=== PATIENT | female | born 1975 | race Caucasian/White ===

== ENCOUNTER 2016-07-27 18:11 | Emergency (ER) | payer OTHER ==
[~2016-07-27] VITALS: Ht 170.2 cm; Wt 95.5 kg
[2016-07-27 18:15] VITALS: BP 183/98; PULSE 114; RESP 20; O2SAT 97
--- NOTE | 2016-07-27 18:32 | ED.REPORT ---
HPI-Overdose/Alcohol Toxicity Date of Service Jul 27, 2016 ED Provider: Eliceo Rubin MD 41 y/o female with a hx of HTN and thyroid disease presents to the ED with SOB, onset 2 hours ago.The pt states she smoked THC and then "got panicked and brought myself straight here". She has used THC before but smoked Dabs for the first time today. She can't recall the approximate time she smoked because she "felt very disoriented". Associated sx include dry mouth and panic attack. Denies fever and cough. The pt states she was feeling normal prior to smoking.She has never experienced similar sx before. Nursing Notes Stated Complaint: NOT FEELING WELL Chief Complaint: Respiratory Complaints Nursing Notes Reviewed: Yes ([employer], [employer] not reconciled) Allergies: Coded Allergies: No Known Allergies (Unverified , 07/27/16) General Time Seen by Provider: 18:33 Chief Complaint Other (SOB) Hx Obtained From: Patient Arrived By: Walk-in Onset Occurred: 1 - 4 hours ago Symptom Duration: Since onset Progression Since Onset: Gradually improving Severity: Current: No pain currently Severity: Maximum: No pain Recent Healthcare: No recent doctor visit Similar Sx Previous: No Past Medical History Past Medical History Childhood Asthma Reports: Hypertension Reports: Thyroid disease Past Surgical History none reported Smoking History Unknown if Ever Smoker Social History Drug Use: THC Ambulatory Status Independent Review of Systems Reports: feeling disoriented Reports: dry mouth Constitutional: Denies: Fever Respiratory: Reports: Shortness of breath, Denies: Non-productive cough Psychiatric: Reports: Anxiety Complete sys rev & neg: except as marked. Physical Exam Initial Vital Signs Vital Signs (First) Date Time Temp Pulse Resp B/P Pulse Ox O2 Delivery O2 Flow Rate FiO2 07/27/16 18:15 36.2 114 20 183/98 97 Initial VS: Reviewed, Vital signs abnormal Neck: Full range of motion Extremities: Vascular intact, Neuro intact, No swelling, No tenderness Skin: Warm, Dry, No cyanosis General/Constitutional: Awake, Alert, Cooperative Behavior: Positive: Anxious Respiratory / Chest: Atraumatic, Breath sounds NL, Breath sounds = bilat, No respiratory distress, No rales, No rhonchi, No wheezing No respiratory depression. No bronchospasm. Cardiovascular: Regular rhythm, Heart sounds NL, No murmurs, No rubs Heart Rate / Rhythm: Positive: Tachycardia (Mild) Mildly hypertensive (baseline) Abdomen: Atraumatic, Soft, Non-tender, No guarding, No rebound Neurologic: Oriented X3, Speech NL (No slurred speech), No motor deficits, No sensory deficits No focal deficit Psychiatric: Affect NL, Mood NL Upper Extremity / MS: Atraumatic, Full range of motion, Neurologic intact, Vascular intact Lower Extremity / Pelvis / MS: Atraumatic, Full range of motion, Neurologic intact, Vascular intact Interpretation & Diagnostics ECG Interpretation ECG Interpretation: Sinus tachycardia. Rate 106. No acute ischemic changes. Borderline left ventricular hypertrophy No prior ECG for comparison. Time: 18:34 Interpreted by: ED physician Re-Eval/Medical Decision Med Decision/Clinical Course This is a 41-year-old female reports she smoked a new type of marijuana (daps) and felt very strange. She became very scared, so came directly to the emergency department. She initially felt anxious, slightly short of breath, but reports she is now starting to feel better. She denies SI. She denies any HI, she denies any intentional overdose. She has no additional complaints. His hypertensive and anxious, states hypertension is long-standing and she is on therapy. Her physical exam is otherwise normal, except for the anxiety. She does not have slurred speech, respiratory depression, or no overt toxidrome. We will provide a history and without dramatic confusion. She is observed and symptoms improved. Her breathing does fit with effects and intoxication of cannabis, she demonstrated no major infections requiring intervention or laboratory testing. Her mother came and picked her up. Routine precautions reviewed. Patient's discharge and prepared Source of Hx: Old records Re-Evaluation/Progress : Time of Eval: 20:03 Patient Status: Condition improved Re-Evaluation/Progress Note: Rechecked pt. Discussed lab, imaging results and diagnosis. Informed the pt of the plan to discharge. Pt understands and agrees with plan. F/U instructions and RTER warning given. All questions addressed. Differential Diagnosis: Positive: Intoxication, other drug, Negative: Alcohol abuse, Anxiety, Bipolar disorder, Conversion disorder Counseled Regarding: Diagnosis, Lab results, Need for follow-up, When/why to return to ED Discharge & Departure Impression: Primary Impression: Intoxication with cannabis Complication of substance-induced condition: uncomplicated Qualified Code: F12.920 - Cannabis use, unspecified with intoxication, uncomplicated Additional Impression: HTN (hypertension) Hypertension type: essential hypertension Qualified Code: I10 - Essential ( primary) hypertension Disposition: Home Discharge Condition All VS Reviewed: Yes Condition: Stable Additional Instructions: 1. Symptoms should continue to improve with time. 2. No driving tonight. 3. Return if new or worsening symptoms. 4. Your blood pressure was elevated in the ED and you should have it rechecked outside of the emergency department. Continue to work with your regular doctor on your blood pressure management. Scribe Attestation Portions of this note were transcribed by Claude Jimenez. I, , personally performed the history, physical exam and medical decision-making;I reviewed and confirmed the accuracy of the information in the transcribed note. Signed by Zabrina Lopez. 07/27/16 20:29 Eliceo Rubin MD Jul 27, 2016 18:32 Claude Jimenez Jul 27, 2016 18:45
[2016-07-27 20:22] VITALS: BP 139/84; PULSE 92; RESP 20; O2SAT 97
== END 2016-07-27 20:22 | disposition home or self-care (01) ==
LOC: SED 18:11
DX: F12.920 Cannabis use, unspecified with intoxication, uncomplicated (principal); I10 Essential (primary) hypertension; R41.0 Disorientation, unspecified; F41.0 Panic disorder [episodic paroxysmal anxiety]; R68.2 Dry mouth, unspecified; J45.909 Unspecified asthma, uncomplicated; E03.9 Hypothyroidism, unspecified